=== PATIENT | male | born 1985 | race Caucasian/White ===

== ENCOUNTER 2019-01-24 12:11 | Emergency (ER) | payer SELFPAY ==
[2019-01-24 13:41] LABS: #Basophils 0.1 thou/uL (0.0-0.2); #Eosinphils 0.4 thou/uL (0.0-0.7); #Monocytes 0.9 thou/uL (0.11-0.59); #Neutrophils 9.2 thou/uL (1.40-6.50); %Basophils 0.5 % (0.0-1.0); %Eosinophils 2.8 % (0.0-10.0); %Lymphocytes 16.2 % (21.0-51.0); %Monocytes 7.4 % (0.0-10.0); %Neutrophils 73.1 % (42.0-75.0); Hemoglobin 14.3 g/dL (14.0-18.0); Mean Corpuscular HGB CONC 33.7 g/dL (32.0-36.0); Mean Corpuscular Hemoglobin 30.3 pg (27.0-31.0); Mean Corpuscular Volume 90.2 fL (78.0-98.0); Mean Platelet Volume 7.5 fL (7.4-10.4); Platelet Count 184 thou/uL (130-400); RBC Distribution Width 11.7 % (11.5-14.5); Red Blood Cell (RBC) Count 4.71 mill/uL (4.70-6.10); White Blood Cell (WBC) Count 12.6 thou/uL (4.8-10.8)
[2019-01-24] MEDS ORDERED: Lorazepam 2 MG/ML VIAL ONE (13:43)
[2019-01-24] MEDS ORDERED: Ketorolac Tromethamine 30 MG/ML VIAL ONE (13:43)
[2019-01-24] MEDS ORDERED: Fentanyl 100 MCG/2 ML VIAL ONE (13:43)
[2019-01-24 14:04] LABS: ALT (SGPT) 38 U/L (8-55); AST (SGOT) 74 U/L (5-34); Albumin 4.1 g/dL (3.5-5.0); Alkaline Phosphatase 38 U/L (40-150); Anion Gap 11 mmol/L (10-20); BUN (Urea Nitrogen) 8 mg/dL (8.9-20.6); Bilirubin, Total 1.2 mg/dL (0.2-1.2); Calc. Creatinine Clearance 0 mL/min (70-130); Calcium 9.2 mg/dL (7.8-10.44); Carbon Dioxide 26 mmol/L (22-29); Chloride 102 mmol/L (98-107); Estimated GFR-MDRD Greater than 90; Globulin 2.8 g/dL (2.4-3.5); Glucose 100 mg/dL (70-105); Lipase 9 U/L (8-78); Potassium 3.9 mmol/L (3.5-5.1); Protein, Total 6.9 g/dL (6.0-8.3); Sodium 135 mmol/L (136-145)
== END 2019-01-24 16:28 | disposition home or self-care (01) ==
LOC: ERS 12:11
DX: S12.600A Unspecified displaced fracture of seventh cervical vertebra, initial encounter for closed fracture (principal); S71.111A Laceration without foreign body, right thigh, initial encounter; S16.1XXA Strain of muscle, fascia and tendon at neck level, initial encounter; F17.220 Nicotine dependence, chewing tobacco, uncomplicated; Z79.899 Other long term (current) drug therapy; V29.9XXA Motorcycle rider (driver) (passenger) injured in unspecified traffic accident, initial encounter
CPT/HCPCS: 36415; 80053; 83690; 85025; 96361; 96374; 96375; J1885; J2060; J3010

== ENCOUNTER 2019-03-22 22:32 | Inpatient (IN) | payer BC, SELFPAY ==
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
[2019-03-23 00:37] LABS: Troponin I Less than 0.010 ng/mL (< 0.028)
[2019-03-23] MEDS ORDERED: HYDROcodone/Acetaminophen 10/325 mg Tablet PO PRN (00:39)
[2019-03-23] MEDS ORDERED: Ondansetron ODT 4 MG TAB PO PRN (00:39)
[2019-03-23] MEDS ORDERED: Ibuprofen 600 MG TAB PO PRN (00:45)
[2019-03-23] MEDS ORDERED: Apixaban 5 MG TAB PO SCH (01:00)
[2019-03-23 01:22] VITALS: BMI 25.0
[2019-03-23] MEDS: HYDROcodone/Acetaminophen 10/325 mg Tablet PO PRN ×2 (01:40→22:18)
[2019-03-23] MEDS: Sodium Chloride 0.9% 1,000 ML IV SCH ×2 (01:42→09:13)
[2019-03-23 03:05] LABS: Troponin I Less than 0.010 ng/mL (< 0.028)
[2019-03-23] MEDS: Apixaban 5 MG TAB PO SCH ×2 (09:11→20:35)
[2019-03-23 09:15] LABS: Hemoglobin 13.1 g/dL (14.0-18.0); Platelet Count 254 thou/uL (130-400)
[2019-03-23 09:29] LABS: Calc. Creatinine Clearance 150 mL/min (70-130); Estimated GFR-MDRD Greater than 90
--- NOTE | 2019-03-23 11:42 | PDOC.FM ---
- Subjective Subjective: NAEO. Off of oxygen, some coughing with deep breaths. Able to walk without issues or desaturation. - Objective MAR Reviewed: Yes Vital Signs & Weight: Vital Signs (12 hours) Temp Pulse Resp BP Pulse Ox 03/23/19 07:40 97.8 F 88 16 111/60 96 03/23/19 04:39 97.8 F 84 18 100/60 93 L 03/23/19 02:21 96 03/23/19 00:56 98.1 F 99 18 121/71 95 Weight Weight 79.152 kg I&O: 03/22/19 03/23/19 03/24/19 06:59 06:59 06:59 Output Total 600 600 Balance -600 -600 Result Diagrams: 03/23/19 08:55 03/23/19 08:55 Phys Exam - Physical Examination Constitutional: NAD HEENT: PERRLA, sclera anicteric Neck: full ROM Respiratory: no wheezing, clear to auscultation bilateral Cardiovascular: RRR, no significant murmur left leg immobilized Neurological: non-focal, moves all 4 limbs Psychiatric: A&O x 3 (/.) Dx/Plan (1) Pulmonary embolism, bilateral Code(s): I26.99 - OTHER PULMONARY EMBOLISM WITHOUT ACUTE COR PULMONALE Status : Acute - Plan Plan: 1. b/l PE, likely provoked -s/p th lovenox -continue eliquis 10mg po BID for first 7 ays then 5mg po BID. Will need anticoagulation for at least 6 mos -rx outpt hypercoaguable panel w/u -AVSS, able to walk down hallway -will discuss possible embolectomy with IR/CV surg as with patient being young he may be a good candidate to reduce risk of complications Addendum - Attending - Attending Attestation Date/Time: 03/24/19 0576 I personally evaluated the patient and discussed the management with Dr. Walters I agree with the History, Examination, Assessment and Plan documented above with any addition or exceptions noted below. I have discussed this case and CTA finding with IR at [facility] reaffirming that this patiennt is hemodynamically stable and has no evidence of RV strain as specifically mentioned in CTA report the risk of targeted thrombollysis outweigh the benefits. will continue observation if any concerns can obtain TTE to re- evaluate patient.
[2019-03-23] MEDS: Triple Antibiotic Oint 1 GM Packet TOP SCH (16:56)
[2019-03-24] MEDS: Apixaban 5 MG TAB PO SCH (08:36)
[2019-03-24] MEDS: Triple Antibiotic Oint 1 GM Packet TOP SCH (08:37)
--- NOTE | 2019-03-24 11:13 | PDOC.FM ---
- Subjective Subjective: NAEO. Breathing well, no chest pain except coughing w/ deep breaths. Able to walk down hallway w/o issues, has not required supplmenetal o2, feels improved. - Objective MAR Reviewed: Yes Vital Signs & Weight: Vital Signs (12 hours) Temp Pulse Resp BP Pulse Ox 03/24/19 08:30 98.8 F 90 18 118/66 93 L 03/24/19 03:30 97.4 F L 74 18 100/68 94 L 03/24/19 00:00 120/65 Weight Weight 79.152 kg I&O: 03/23/19 03/24/19 03/25/19 06:59 06:59 06:59 Intake Total 2588 Output Total 600 1300 Balance -600 1288 Result Diagrams: 03/23/19 08:55 03/23/19 08:55 Phys Exam - Physical Examination Constitutional: NAD HEENT: PERRLA, sclera anicteric Respiratory: no wheezing, clear to auscultation bilateral Cardiovascular: RRR, no significant murmur Neurological: non-focal, moves all 4 limbs Psychiatric: normal affect, A&O x 3 Dx/Plan (1) Pulmonary embolism, bilateral Code(s): I26.99 - OTHER PULMONARY EMBOLISM WITHOUT ACUTE COR PULMONALE Status : Acute - Plan Plan: 1. b/l PE, likely provoked -s/p th lovenox -continue eliquis 10mg po BID for first 7 ays then 5mg po BID. Will need anticoagulation for at least 6 mos -rx outpt hypercoaguable panel w/u -AVSS, able to walk down hallway, breathing easy -discussed possibility of echo to see RV strain however patient clinically improved. /pt okay with at later point. -will talk with case management to get help with affordance of eliquis dipos: d/c pending eliquis affordance Addendum - Attending - Attending Attestation Date/Time: 03/24/19 1203 I personally evaluated the patient and discussed the management with Dr. Walters I agree with the History, Examination, Assessment and Plan documented above with any addition or exceptions noted below. Patient with no evidence RV strain on CTA and progressive clinical improvement he remains stable rec close outpt f/u and echocardiogram if s/s of any deterioration. Patient understands the importance of continuing Eliquis and [facility] Protein C deficiency which I would recommend he be screened for as well.
[2019-03-24 11:45] VITALS: BP 122/67; TEMP 98.3
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
--- NOTE | 2019-03-26 04:10 | PQF ---
[employer] Crystal Reports [facility] HospitalYUSUF DUARTE JOSETTE LYON MD [id number] CLINICAL DOCUMENTATION CLARIFICATION FORM: POST DISCHARGE Addendum to original discharge summary date: ____ Late entry note date: __ DATE: 03/26/2019 ATTN:JOSETTE LYON MD Please exercise your independent, professional judgment in responding to the clarification form. Clinical indicators are provided on the bottom of this form for your review Please check appropriate box(s): [ ] Pulmonary Embolism was due to post knee surgery [ ] Pulmonary Embolism was not due to post knee surgery [ ] Other diagnosis [ ] Unable to determine In addition, please specify: Present on Admission (POA): [ ] Yes [ ] No [ ] Unable to determine CLINICAL INDICATORS - SIGNS / SYMPTOMS / LABS Pulmonary embolism - Documented in H&P on 03/23 by Tiny Celeste MD He had surgery for his knee on February 10 - Documented in H&P on 03/23 by Tiny Celeste MD after surgery patient discharged with 30days of Eliquis - Documented in H&P on 03/23 by Tiny Celeste MD He did not know he was supposed to continue the medication and completed it approximately 2wks ago - Documented in H&P on 03/23 by Tiny Celeste MD RISK FACTORS s/p multiple ligament repair of L knee - Documented in H&P on 03/23 by Tiny Celeste MD DVT TREATMENT: CT scan Was given therapeutic lovenox at [facility] and aspirin 81mg Will restart Eliquis 10 mg BID for 7 days and then decreased to 5mg BID - Documented in H&P on 03/23 by Tiny Celeste MD We monitor Vital Signs closely for decompensation - Documented in H&P on 03/23 by Tiny Celeste MD (This form is maintained as a part of the permanent medical record) 2014 [employer] All Rights Reserved [email or web address] [not [email or web address]] MTDD
== END 2019-03-24 14:03 | disposition home or self-care (01) | DRG 176 ==
LOC: ERS 22:32 → 2NO 03-23 00:54
PROVIDERS: ADMIT Family Medicine; ATTEND Family Medicine
DX: I26.99 Other pulmonary embolism without acute cor pulmonale (principal); J90 Pleural effusion, not elsewhere classified; I82.491 Acute embolism and thrombosis of other specified deep vein of right lower extremity; Z79.899 Other long term (current) drug therapy; F17.200 Nicotine dependence, unspecified, uncomplicated; Z98.890 Other specified postprocedural states
CPT/HCPCS: 36415; 82565; 84484; 85014; 85018; 85049; 99285

== ENCOUNTER 2019-09-12 12:19 | Outpatient (CLI) | payer BC | END 2019-09-12 12:20 | disposition home or self-care (01) | LOC: ULT 12:19 | PROVIDERS: ATTEND Student in an Organized Health Care Education/Training Program | DX: I26.99 Other pulmonary embolism without acute cor pulmonale (principal); I08.1 Rheumatic disorders of both mitral and tricuspid valves | CPT/HCPCS: 93306 ==